=== PATIENT | female | born 1955 ===

== ENCOUNTER 2017-08-17 16:35 | Emergency (ER) | payer SELFPAY ==
[2017-08-17 16:35] VITALS: BMI 25.0
[2017-08-17 16:42] VITALS: BP 154/83; PULSE 87; RESP 18; TEMP 97.8; O2SAT 97
--- NOTE | 2017-08-17 17:09 | ED PDOC ---
HPI: Skin/Bite Injury Time Seen by Provider: 08/17/17 17:00 Chief Complaint (Nursing): Abnormal Skin Integrity Chief Complaint (Provider): Rash History Per: Patient History/Exam Limitations: no limitations Onset/Duration Of Symptoms: Days (chronic) Current Symptoms Are (Timing): Still Present Additional Complaint(s): Roseanne Matta is a 62 year old female presenting to the ED for an evaluation of a persistent, pruritic rash to her feet, back, and neck. 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 She notes she attempted Benadryl and applied alcohol swabs, but reports this made it worse. The patient states she experienced a similar rash 1 year ago at which time she was also [place] bathrooms [place] the park, but notes it resolved with Benadryl. She reports going to the clinic for symptoms this week, and was given a topical antifungal cream for her neck. She notes she has not had relief which prompted her ED visit today. She denies fever, homicidal ideations, suicidal ideations, and visual or auditory hallucinations. Contrary to triage, patient states she is not anxious and denies any psych history. She notes she is crying because she is frustrated that her rash has been present for so long. She denies wanting to speak with anyone from crisis. PMD: Bruna Soto Past Medical History Reviewed: Historical Data, Nursing Documentation, Vital Signs Vital Signs: Last Vital Signs Temp 97.8 F 08/17/17 16:38 Pulse 87 08/17/17 16:38 Resp 18 08/17/17 16:38 BP 154/83 H 08/17/17 16:38 Pulse Ox 97 08/17/17 19:05 - Medical History PMH: Arthritis, CVA, Depression, HTN, Hypercholesterolemia Denies: Chronic Kidney Disease - Surgical History Surgical History: Appendectomy - Family History Family History: States: Unknown Family Hx - Social History Current smoker - smoking cessation education provided: No Ex-Smoker (has not smoked in the last 12 months): No Alcohol: None Drugs: Denies - Home Medications Home Medications: Ambulatory Orders Medication Instructions Recorded Albuterol 0.083% [Albuterol 0.083% 3 ml IH Q4H PRN 09/06/16 Inhal Ramila (2.5 mg/3 ml) UD] Albuterol HFA [Ventolin HFA 90 2 puff IH Q4H PRN 09/06/16 mcg/actuation (8 g)] Aspirin [Ecotrin] 81 mg PO DAILY 09/06/16 Calcium Carbonate/Vitamin D3 1 tab PO DAILY 09/06/16 [Calcium 500-Vit D3 200 Caplet] Ergocalciferol (Vitamin D2) 50,000 unit PO SAT 09/06/16 [Vitamin D2] Oxycodone HCl/Acetaminophen 1 tab PO Q4H PRN 09/06/16 [Percocet 10-325 mg Tablet] Simvastatin [Zocor] 20 mg PO DAILY 09/06/16 Famotidine [Pepcid] 20 mg PO DAILY #4 tab 08/17/17 Prednisone [Deltasone] 40 mg PO DAILY 4 Days #8 tablet 08/17/17 hydrOXYzine HCl [Atarax] 25 mg PO Q6H PRN #12 tab 08/17/17 - Allergies Allergies/Adverse Reactions: Allergies Allergy/AdvReac Type Severity Reaction Status Date / Time acetaminophen AdvReac VOMITING Verified 09/06/16 15:37 [From Excedrin Migraine] aspirin AdvReac VOMITING Verified 09/06/16 15:37 [From Excedrin Migraine] caffeine AdvReac VOMITING Verified 09/06/16 15:37 [From Excedrin Migraine] iodine AdvReac VOMITING Verified 09/06/16 15:37 iodixanol AdvReac VOMITING Verified 09/06/16 15:37 Review of Systems ROS Statement: Except As Marked, All Systems Reviewed And Found Negative Constitutional: Negative for: Fever Skin: Positive for: Rash (pruritic rash to neck, back, feet) Psych: Negative for: Suicidal ideation (or homicidal ideations), Other (no visual or auditory hallucinations) Physical Exam - Reviewed Nursing Documentation Reviewed: Yes Vital Signs Reviewed: Yes - Physical Exam Appears: Positive for: Non-toxic, No Acute Distress (appears tearful ) Head Exam: Positive for: ATRAUMATIC, NORMOCEPHALIC Skin: Positive for: Rash (dry, erythematous blanchable rash to dorsal aspect of bilateral feet with excoriations to feet, upper back, and lower back; papular rash to lower back) Cardiovascular/Chest: Positive for: Regular Rate, Rhythm, Chest Non Tender Respiratory: Positive for: Normal Breath Sounds. Negative for: Respiratory Distress Neurologic/Psych: Positive for: Alert, Oriented (x3) - ECG O2 Sat by Pulse Oximetry: 97 (RA) Pulse Ox Interpretation: Normal Medical Decision Making Medical Decision Making: Time: 17:00 Impression: Rash Plan: * Pepcid 20 mg PO * Prednisone 40 mg PO * Reevaluation 18:50 Pt seen by wireworker, Judy. Spoke to pt's daughter who states pt has no psychiatric history. The pt is only frustrated and shows no psychiatric symptoms , therefore cleared by Crisis and stable for discharge. On reevaluation, patient reports significant improvement of symptoms. She was advised to f/u with the clinic for possible dermatology referral should symptoms persist. Scribe Attestation: Documented by Alise Veloz, acting as a scribe for Nat De La Paz PA-C. Provider Scribe Attestation: All medical record entries made by the Scribe were at my direction and personally dictated by me. I have reviewed the chart and agree that the record accurately reflects my personal performance of the history, physical exam, medical decision making, and the department course for this patient. I have also personally directed, reviewed, and agree with the discharge instructions and disposition. Disposition - Clinical Impression Clinical Impression: Rash - Patient ED Disposition Is Patient to be Admitted: No Counseled Patient/Family Regarding: Diagnosis, Need For Followup, Rx Given - Disposition Referrals: [facility] [place] [Outside] Disposition: Routine/Home Disposition Time: 18:18 Condition: FAIR Additional Instructions: TAKE MEDICATION PRESCRIBED. F/U WITH [facility] FOR POSSIBLE DERMATOLOGY REFERRAL SHOULD SYMPTOMS PERSIST. Prescriptions: Famotidine [Pepcid] 20 mg PO DAILY #4 tab hydrOXYzine HCl [Atarax] 25 mg PO Q6H PRN #12 tab PRN Reason: Itching / Pruritus Prednisone [Deltasone] 40 mg PO DAILY 4 Days #8 tablet Instructions: Insect Bite or Sting (ED), Dermatitis (ED) Forms: [facility] ([employer]) Print Language: LATVIAN
== END 2017-08-17 20:49 | disposition home or self-care (01) ==
LOC: H.ER 16:35
DX: L30.9 Dermatitis, unspecified (principal)

== ENCOUNTER 2018-03-19 10:13 | Day surgery (SDC) | payer SELFPAY ==
[2018-03-19] MEDS ORDERED: Lactated Ringer's 500 ML IV ONE (11:31)
[2018-03-19] MEDS ORDERED: Midazolam 2 MG/2 ML VIAL ONE (11:54)
[2018-03-19] MEDS ORDERED: Propofol 10 mg/ml Inj (20 ML) ONE (11:54)
[2018-03-19 12:57] VITALS: BP 107/68; PULSE 70; RESP 17; TEMP 98.8; O2SAT 99
== END 2018-03-19 13:04 | disposition home or self-care (01) ==
LOC: H.ENDO 10:13
PROVIDERS: ATTEND Internal Medicine Gastroenterology
DX: Z12.11 Encounter for screening for malignant neoplasm of colon (principal); Z86.73 Personal history of transient ischemic attack (TIA), and cerebral infarction without residual deficits; E78.5 Hyperlipidemia, unspecified; I10 Essential (primary) hypertension; F32.9 Major depressive disorder, single episode, unspecified; E03.9 Hypothyroidism, unspecified; K64.0 First degree hemorrhoids; K57.30 Diverticulosis of large intestine without perforation or abscess without bleeding
CPT/HCPCS: 45378; J2001; J2250; J2704; J7120

== ENCOUNTER 2018-09-09 11:35 | Emergency (ER) | payer MEDICAID ==
[2018-09-09 11:53] VITALS: BP 148/74; PULSE 65; TEMP 98; BMI 26.9
[2018-09-09 12:10] VITALS: RESP 16; O2SAT 99
--- NOTE | 2018-09-09 13:22 | ED PDOC ---
HPI: Skin/Bite Injury Time Seen by Provider: 09/09/18 12:15 Chief Complaint (Nursing): Abnormal Skin Integrity Chief Complaint (Provider): Rash on nexk x 1 month History Per: Patient History/Exam Limitations: no limitations Onset/Duration Of Symptoms: Days Current Symptoms Are (Timing): Still Present Quality Of Symptoms: Itching Additional Complaint(s): 63 year old female presents to the ED with an itchy red rash on the neck and upper chest for 1 month. When it first happened, patient thought it was due to a new coat she had worn but she states she hasn't worn that coat since and rash continues. Patient reports she has been taking Benadryl over the last month but does not feel like it has helped. She indicates there are days where rash has improved. Denies new soap or medications. Patient was seen by the clinic 2 weeks ago but at the time, the rash was not there. PMD: Teddy Capps Past Medical History Reviewed: Historical Data, Nursing Documentation, Vital Signs Vital Signs: Last Vital Signs Temp 98 F 09/09/18 12:08 Pulse 65 09/09/18 12:08 Resp 16 09/09/18 12:08 BP 148/74 09/09/18 12:08 Pulse Ox 99 09/09/18 12:08 - Medical History PMH: Arthritis, CVA, Depression, HTN, Hypercholesterolemia Denies: Chronic Kidney Disease - Surgical History Surgical History: Appendectomy - Family History Family History: States: Unknown Family Hx - Home Medications Home Medications: Ambulatory Orders Medication Instructions Recorded predniSONE [predniSONE Tab] 20 mg PO DAILY #12 tab 09/09/18 - Allergies Allergies/Adverse Reactions: Allergies Allergy/AdvReac Type Severity Reaction Status Date / Time acetaminophen AdvReac VOMITING Verified 09/09/18 12:07 [From Excedrin Migraine] aspirin AdvReac VOMITING Verified 09/09/18 12:07 [From Excedrin Migraine] caffeine AdvReac VOMITING Verified 09/09/18 12:07 [From Excedrin Migraine] iodine AdvReac VOMITING Verified 09/09/18 12:07 iodixanol AdvReac VOMITING Verified 09/09/18 12:07 Review of Systems ROS Statement: Except As Marked, All Systems Reviewed And Found Negative Skin: Positive for: Rash (red and itchy) Physical Exam - Reviewed Nursing Documentation Reviewed: Yes Vital Signs Reviewed: Yes - Physical Exam Appears: Positive for: Non-toxic, No Acute Distress Head Exam: Positive for: ATRAUMATIC, NORMOCEPHALIC Skin: Positive for: Rash (red, erythematous blanching rash with plaque with defined border on upper chest and neck) Eye Exam: Positive for: Normal appearance Neck: Positive for: Normal, Painless ROM Cardiovascular/Chest: Positive for: Regular Rate, Rhythm. Negative for: Murmur Respiratory: Positive for: Normal Breath Sounds. Negative for: Wheezing, Respiratory Distress Extremity: Positive for: Normal ROM Neurologic/Psych: Positive for: Alert, Oriented. Negative for: Motor/Sensory Deficits - ECG O2 Sat by Pulse Oximetry: 99 (RA) Pulse Ox Interpretation: Normal Medical Decision Making Medical Decision Making: Initial Impression: Rash Scribe Attestation: Documented by Eriberto Veloz acting as a scribe for Candace BARRETO. Provider Scribe Attestation: All medical record entries made by the Scribe were at my direction and personally dictated by me. I have reviewed the chart and agree that the record accurately reflects my personal performance of the history, physical exam, medical decision making, and the department course for this patient. I have also personally directed, reviewed, and agree with the discharge instructions and disposition. Disposition - Clinical Impression Clinical Impression: Contact dermatitis - Patient ED Disposition Is Patient to be Admitted: No Counseled Patient/Family Regarding: Diagnosis, Need For Followup, Rx Given - Disposition Referrals: [facility] [Outside] Disposition: Routine/Home Disposition Time: 13:22 Condition: GOOD Prescriptions: predniSONE [predniSONE Tab] 20 mg PO DAILY #12 tab Instructions: Contact Dermatitis (DC) Forms: [employer] ([employer])
== END 2018-09-09 13:31 | disposition home or self-care (01) ==
LOC: H.ER 11:35
DX: L25.9 Unspecified contact dermatitis, unspecified cause (principal); Z86.73 Personal history of transient ischemic attack (TIA), and cerebral infarction without residual deficits; Z86.59 Personal history of other mental and behavioral disorders; I10 Essential (primary) hypertension